=== PATIENT | female | born 1990 | race Caucasian/White ===

== ENCOUNTER 2019-10-14 16:05 | Emergency (ER) | payer OTHER ==
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
[2019-10-14 17:02] VITALS: BP 102/61; PULSE 63; TEMP 98.7; BMI 23.0
== END 2019-10-14 19:30 | disposition left against medical advice (07) ==
LOC: JERFT 16:05
CPT/HCPCS: 99281-25